=== PATIENT | female | born 1940 | race Caucasian/White ===

== ENCOUNTER 2017-11-09 22:36 | Inpatient (IN) | payer MEDICARE ==
[2017-11-09 23:12] LABS: #Basophils 0.1 thou/uL (0.0-0.2); #Eosinphils 0.2 thou/uL (0.0-0.7); #Lymphocytes 1.6 thou/uL (1.20-3.40); #Monocytes 0.9 thou/uL (0.11-0.59); #Neutrophils 5.6 thou/uL (1.40-6.50); %Basophils 1.6 % (0.0-1.0); %Eosinophils 2.4 % (0.0-10.0); %Lymphocytes 19.1 % (21.0-51.0); %Monocytes 10.1 % (0.0-10.0); %Neutrophils 66.8 % (42.0-75.0); Mean Corpuscular Hemoglobin 29.5 pg (27.0-31.0); Mean Corpuscular Volume 89.6 fl (81.0-99.0); Mean Platelet Volume 9.4 fL (7.4-10.4); Platelet Count 214 thou/uL (130-400); RBC Distribution Width 13.5 % (11.5-14.5); Red Blood Cell (RBC) Count 4.75 mill/uL (4.20-5.40); White Blood Cell (WBC) Count 8.4 thou/uL (4.8-10.8)
--- NOTE | 2017-11-09 23:12 | RAD ---
PORTABLE CHEST: 11/09/17 HISTORY: Shortness of breath. Heart size is within normal limits. There are atherosclerotic changes of the aorta. Chronic lung nair ges are seen without focal infiltrates. IMPRESSION: No active intrathoracic disease. POS: [facility]
[2017-11-09] MEDS ORDERED: methylPREDNISolone Sod Succ/PF 125 MG/2 ML VIAL ONE (23:13)
[2017-11-09 23:34] LABS: Anion Gap 14 mmol/L (10-20); BUN (Urea Nitrogen) 12 mg/dL (9.8-20.1); Carbon Dioxide 21 mmol/L (23-31); Chloride 107 mmol/L (98-107); Potassium 3.8 mmol/L (3.5-5.1); Sodium 138 mmol/L (136-145)
[2017-11-09 23:35] LABS: ALT (SGPT) 12 U/L (8-55); AST (SGOT) 20 U/L (5-34); Albumin 4.2 g/dL (3.4-4.8); Alkaline Phosphatase 101 U/L (40-150); Bilirubin, Total 0.4 mg/dL (0.2-1.2); CK (CPK) 78 U/L (29-168); Calc. Creatinine Clearance 0 mL/min (70-130); Calcium 9.2 mg/dL (7.8-10.44); Estimated GFR-MDRD 71; Glucose 113 mg/dL (83-110); Lipase 17 U/L (8-78); Magnesium 2.1 mg/dL (1.6-2.6); Protein, Total 7.2 g/dL (6.0-8.3)
[2017-11-09 23:38] LABS: Troponin I Less than 0.010 ng/mL (< 0.028)
[2017-11-09 23:53] LABS: Bilirubin Negative (Negative); Blood, Urine Negative (Negative); Clarity CLEAR (Clear); Glucose, Urine (Dipstick) Negative (Negative); Leukocyte Negative (Negative); Nitrite Negative (Negative); Protein, Urine (Dipstick) Negative (Neg-Trace); Specific Gravity, Urine 1.009 (1.002-1.036); Urobilinogen 0.2 mg/dL (0.2-1.0); pH, Urine 5.5 (5.0-9.0)
[2017-11-10] MEDS ORDERED: hydrALAZINE 20 MG/ML VIAL SLOW IVP PRN (01:06)
[2017-11-10] MEDS ORDERED: Ondansetron ODT 4 MG TAB PO PRN (01:06)
[2017-11-10] MEDS ORDERED: Diabetic Tussin 200 MG/10 ML UDCUP PO PRN (01:06)
[2017-11-10] MEDS ORDERED: Mag-Al 1200 mg/1200 mg/30 ML UDCUP PO PRN (01:06)
[2017-11-10] MEDS ORDERED: Ondansetron HCl/PF 4 MG/2 ML Vial IVP PRN (01:06)
[2017-11-10] MEDS ORDERED: Milk Of Magnesia 30 ML UDCUP PO PRN (01:06)
[2017-11-10] MEDS ORDERED: Loperamide HCl 2 MG CAP PO PRN (01:06)
[2017-11-10] MEDS ORDERED: HYDROcodone/Acetaminophen 5/325 mg Tablet PO PRN (01:06)
[2017-11-10] MEDS ORDERED: Acetaminophen 325 MG TAB PO PRN (01:06)
[2017-11-10] MEDS ORDERED: Senokot 8.6 MG TAB PO PRN (01:06)
[2017-11-10 01:14] VITALS: BMI 29.3
--- NOTE | 2017-11-10 02:36 | HP ---
PRIMARY CARE PHYSICIAN: [facility] call admission. REASON FOR ADMISSION: Acute hypoxic respiratory failure, COPD exacerbation, new onset congestive hea rt failure. HISTORY OF PRESENT ILLNESS: A 77-year-old female who has ongoing tobacco abuse disorder. She has a history of severe COPD. She was recently hospitalized about a month ago at [facility]. At that time, she required hospitalization at that time she was treated with BiPAP. She was dischar ged home and she started smoking again. For the last few days, she was having very poor appetite. S he was having increasing shortness of breath. Patient also had increasing bilateral lower extremity pitting edema for about a week. Patient stopped taking Lasix, which she was taking at home. Patient was having cough productive of yellowish sputum. She denies any flu-like symptoms. She had runny n ose, upper respiratory symptoms. Patient's home medication and nebulizer medication was not working and that is why family member brought her to the emergency room. Patient does not use oxygen at home . When she arrived to the emergency room, she was hypoxic and she was requiring BiPAP for her respir atory distress. ALLERGIES: No known drug allergies. CURRENT HOME MEDICATIONS: Patient did not bring her home medications and she is not able to tell me all the medication name, so unable to review at this point, but she reports that she has nebulizer an d she is using nebulizer medicine. She is also taking Lasix, dose is unknown. REVIEW OF SYSTEMS: The following complete review of systems was negative, unless otherwise mentioned in the HPI or below: Constitutional: Weight loss or gain, ability to conduct usual activities. Sk in: Rash, itching. Eyes: Double vision, pain. ENT/Mouth: Nose bleeding, neck stiffness, pain, te nderness. Cardiovascular: Palpitations, dyspnea on exertion, orthopnea. Respiratory: Shortness of breath, wheezing, cough, hemoptysis, fever or night sweats. Gastrointestinal: Poor appetite, abdom inal pain, heartburn, nausea, vomiting, constipation, or diarrhea. Genitourinary: Urgency, frequenc y, dysuria, nocturia. Musculoskeletal: Pain, swelling. Neurologic/Psychiatric: Anxiety, depressio n. Allergy/Immunologic: Skin rash, bleeding tendency. Please see my HPI for pertinent positives an d negatives. All other review of system reviewed and negative except as mentioned in the HPI. PAST MEDICAL HISTORY: COPD, CHF, tobacco abuse disorder. PAST SURGICAL HISTORY: Hysterectomy, cholecystectomy, tubal ligation, appendicectomy. PAST PSYCHIATRIC HISTORY: Anxiety and depression. SOCIAL HISTORY: Patient is smoking about 1 pack per day for the last 60 years. She is trying to cut down smoking. She denies any alcohol abuse. She denies any other illicit drug abuse. She lives by herself. FAMILY HISTORY: No strong family history of premature coronary artery disease, stroke, or cancer. EMERGENCY ROOM COURSE: Patient is given BiPAP, Levaquin 750 mg, Solu-Medrol 125 mg, and DuoNeb thera py. PHYSICAL EXAMINATION: VITAL SIGNS: Currently, blood pressure 183/82, pulse 104, respiratory rate 26, temperature 98.1, sat uration 98% on 2 liter oxygen, subsequently 93% on BiPAP. Weight 62.6 kilograms. GENERAL: Patient is currently hypertensive, tachypneic, in respiratory distress on BiPAP. HEENT: Head: Normocephalic, atraumatic. Eyes: Pupils round, reactive to light. Extraocular muscl e intact. ENT: Oropharynx within normal limits. Moist mucous membranes, no oral lesions, no pharyngeal erythe ma, or exudate. NECK: Supple, no JVD, no thyromegaly, no carotid bruits. LUNGS: Bibasilar rales noted. Bilateral end expiratory wheezing heard. Air entry reduced. CARDIAC: S1, S2 regular, tachycardia, no murmur, no gallop, no rub. ABDOMEN: Soft, bowel sounds present, nontender, nondistended. No organomegaly, no mass, no suprapub ic tenderness. BACK: Unremarkable, no CVA tenderness. EXTREMITIES: Upper extremity passive movement of all joints are normal. Lower extremity bilateral + 2 pitting edema noted. Good distal pulsation. SKIN: No skin rash. HEMATOLOGICAL SYSTEM: No lymphadenopathy. PSYCHIATRIC: Normal affect. NEUROLOGIC: Nonfocal examination. SIGNIFICANT LABS: EKG showing sinus tachycardia. Left atrial enlargement. Chest x-ray based on my review, COPD changes without any acute process. CBC: WBC 8.4, hemoglobin 14.0, platelet 214. BMP: Sodium 138, potassium 3.8, chloride 107, carbon dioxide 21, anion gap 14, BUN 12, creatinine 0.78, g lucose 113, calcium 9.2, lactic acid 1.0. LFT: AST 20, ALT 12, alkaline phosphatase was 101, albumin 4.2, lipase 17. Cardiac enzymes negative . BNP 308.1. CK 78. Urinalysis normal. ASSESSMENT AND PLAN/IMPRESSION: 1. Acute hypoxic respiratory failure likely due to chronic obstructive pulmonary disease exacerbatio n. 2. Chronic obstructive pulmonary disease exacerbation. 3. Ongoing tobacco abuse disorder. 4. Bilateral lower extremity edema likely due to congestive heart failure, predominantly right-sided heart failure secondary to cor pulmonale. 5. Mild protein-calorie malnutrition. 6. Hypertension. PLAN: 1. Admission to [facility] [place]. BiPAP. Pulmonary consultation. Echocardiography. Lasix 20 mg IV b.i.d., Du oNebs q.4 hourly and p.r.n., Pulmicort nebulization twice daily, cefepime 1 gram IV q.12 hourly, doxy cycline 100 mg twice daily, Mucinex 600 mg 3 times daily, Solu-Medrol 40 mg IV q.6 hourly, Protonix 4 0 mg p.o. daily. Smoking cessation counseling given. Nutritional support with Ensure. 2. DVT prophylaxis with Lovenox 40 mg subcu daily. 3. Gastrointestinal prophylaxis with Protonix 40 mg IV daily. 4. Code status: The patient is FULL CODE. Patient does not have a surrogate decision maker. Disposition plan based on clinical course. We are expecting patient's stay in the hospital more than 2 midnights. Plan of care discussed with the patient in detail.
[2017-11-10 05:15] LABS: Anion Gap 11 mmol/L (10-20); BUN (Urea Nitrogen) 10 mg/dL (9.8-20.1); Calc. Creatinine Clearance 64 mL/min (70-130); Calcium 8.7 mg/dL (7.8-10.44); Carbon Dioxide 21 mmol/L (23-31); Chloride 109 mmol/L (98-107); Estimated GFR-MDRD 82; Glucose 131 mg/dL (83-110); Potassium 3.9 mmol/L (3.5-5.1); Sodium 137 mmol/L (136-145)
[2017-11-10 05:16] LABS: #Lymphocytes 0.4 thou/uL (1.20-3.40); #Monocytes 0.1 thou/uL (0.11-0.59); #Neutrophils 6.5 thou/uL (1.40-6.50); %Basophils 0.2 % (0.0-1.0); %Eosinophils 0.3 % (0.0-10.0); %Lymphocytes 5.7 % (21.0-51.0); %Monocytes 1.7 % (0.0-10.0); %Neutrophils 92.1 % (42.0-75.0); Hemoglobin 12.9 g/dL (12.0-16.0); Mean Corpuscular HGB CONC 33.4 g/dL (32.0-36.0); Mean Corpuscular Volume 89.9 fl (81.0-99.0); Mean Platelet Volume 9.5 fL (7.4-10.4); Platelet Count 179 thou/uL (130-400); RBC Distribution Width 13.4 % (11.5-14.5); Red Blood Cell (RBC) Count 4.31 mill/uL (4.20-5.40); White Blood Cell (WBC) Count 7.1 thou/uL (4.8-10.8)
[2017-11-10] MEDS: Furosemide 20 MG/2 ML VIAL SLOW IVP SCH ×2 (05:48→15:27)
[2017-11-10] MEDS: Budesonide 0.5 MG/2 ML NEB INH SCH ×2 (07:51→18:42)
[2017-11-10] MEDS: Doxycycline 100 MG CAP PO SCH ×2 (08:23→20:17)
[2017-11-10] MEDS: Enoxaparin Sodium 40 MG/0.4 ML SYRINGE SC SCH (08:24)
[2017-11-10] MEDS: guaiFENesin ER 600 MG TAB PO SCH ×2 (08:24→20:18)
[2017-11-10] MEDS: Cefepime 2 GM in Syringe 12.5 ML SLOW IVP SCH ×2 (08:30→20:17)
--- NOTE | 2017-11-10 11:58 | PDOC.PN ---
- Subjective Encounter Start Date: 11/10/17 Encounter Start Time: 11:15 Subjective: off bipap, breathing better -: no chest pain or palp - Objective Resuscitation Status: Resuscitation Status FULL:Full Resuscitation MAR Reviewed: Yes Vital Signs & Weight: Vital Signs (12 hours) Temp Pulse Resp BP Pulse Ox 11/10/17 11:20 98.8 F 88 24 H 110/55 L 99 11/10/17 08:00 98.1 F 81 22 H 113/60 100 11/10/17 07:52 97 100 11/10/17 07:51 95 20 100 11/10/17 07:50 95 20 100 11/10/17 04:00 98.3 F 84 24 H 102/54 L 100 11/10/17 02:49 84 21 H 100 11/10/17 01:06 82 11/10/17 01:00 98.3 F 84 24 H 97 11/10/17 00:55 98.1 F 86 26 H 131/78 97 Weight Weight 135 lb 9.6 oz I&O: 11/09/17 11/10/17 11/11/17 06:59 06:59 06:59 Intake Total 340 Output Total 600 Balance -260 Result Diagrams: 11/10/17 04:33 11/10/17 04:33 Phys Exam - Physical Examination HEENT: PERRLA, sclera anicteric Neck: no JVD, supple Respiratory: no wheezing, no rales rhonchi+ Cardiovascular: RRR, no significant murmur Gastrointestinal: soft, non-tender, positive bowel sounds Musculoskeletal: pulses present, edema present Neurological: non-focal, moves all 4 limbs Dx/Plan (1) Acute respiratory failure with hypoxia Code(s): J96.01 - ACUTE RESPIRATORY FAILURE WITH HYPOXIA Status: Acute Comment: resolving (2) COPD exacerbation Code(s): J44.1 - CHRONIC OBSTRUCTIVE PULMONARY DISEASE W (ACUTE) EXACERBATION Status: Acute (3) CHF exacerbation Code(s): I50.9 - HEART FAILURE, UNSPECIFIED Status: Acute Qualifiers: Congestive heart failure type: diastolic Qualified Code(s): I50.33 - Acute on chronic diastolic (congestive) heart failure (4) Tobacco abuse Code(s): Z72.0 - TOBACCO USE Status: Chronic (5) Protein-calorie malnutrition, moderate Code(s): E44.0 - MODERATE PROTEIN-CALORIE MALNUTRITION Status: Chronic - Plan on cefepime and doxy, nebs, solumedrol iv -: lasix 20q12h, watch for hypotension -: january tx to telemetry -: await echo results -: pt will think and d/w her children about code status * . Review of Systems - Medications/Allergies Allergies/Adverse Reactions: Allergies Allergy/AdvReac Type Severity Reaction Status Date / Time No Known Allergies Allergy Verified 11/10/17 01:30 Medications: Current Medications Acetaminophen (Tylenol) 650 mg PO Q4H PRN PRN Reason: Headache/Fever or Pain Hydrocodone Bitart/Acetaminophen ([place] 5/325) 1 tab PO Q4H PRN PRN Reason: Moderate Pain (4-6) Al Hydroxide/Mg Hydroxide (Maalox) 30 ml PO Q6H PRN PRN Reason: Heartburn or Indigestion Albuterol/Ipratropium (Duoneb) 3 ml NEB [id number] [facility] Last Admin: 11/10/17 07:50 Dose: 3 ml Albuterol/Ipratropium (Duoneb) 3 ml NEB Q2H PRN PRN Reason: SOB &/or Wheezing Budesonide (Pulmicort Neb Solution) 0.5 mg INH BID-RT [facility] Last Admin: 11/10/17 07:51 Dose: 0.5 mg Doxycycline Hyclate (Vibramycin) 100 mg PO BID [facility] Last Admin: 11/10/17 08:23 Dose: 100 mg Enoxaparin Sodium (Lovenox) 40 mg SC 0900 [facility] Last Admin: 11/10/17 08:24 Dose: 40 mg Furosemide (Lasix) 20 mg SLOW IVP 0600,1400 [facility] Last Admin: 11/10/17 05:48 Dose: 20 mg Guaifenesin (Robitussin Sf) 200 mg PO Q4H PRN PRN Reason: Cough Guaifenesin (Mucinex) 600 mg PO Q12HR [facility] Last Admin: 11/10/17 08:24 Dose: 600 mg Hydralazine HCl (Apresoline) 10 mg SLOW IVP Q4H PRN PRN Reason: Systolic BP > 180 Cefepime HCl 2 gm/ Syringe 12.5 mls @ 150 mls/hr SLOW IVP Q12HR [facility] Last Admin: 11/10/17 08:30 Dose: 12.5 mls Loperamide HCl (Imodium) 2 mg PO PRN PRN PRN Reason: Diarrhea/Loose Stools Magnesium Hydroxide (Milk Of Magnesium) 30 ml PO DAILYPRN PRN PRN Reason: Constipation Methylprednisolone Sodium Succinate (Solu-Medrol) 40 mg IVP Q6HR [facility] Last Admin: 11/10/17 11:52 Dose: 40 mg Mometasone Furoate/Formoterol Fumar (Dulera 200 Mcg/5 Mcg Inhaler) 2 puff INH BID-RT [facility] Ondansetron HCl (Zofran Odt) 4 mg PO Q6H PRN PRN Reason: Nausea/Vomiting Ondansetron HCl (Zofran) 4 mg IVP Q6H PRN PRN Reason: Nausea/Vomiting Pantoprazole Sodium (Protonix) 40 mg PO DAILY [facility] Last Admin: 11/10/17 08:23 Dose: 40 mg Senna (Senokot) 2 tab PO HSPRN PRN PRN Reason: Constipation Sodium Chloride (Flush - Normal Saline) 10 ml IVF Q12HR [facility] Last Admin: 11/10/17 08:30 Dose: 10 ml Sodium Chloride (Flush - Normal Saline) 10 ml IVF PRN PRN PRN Reason: Saline Flush
--- NOTE | 2017-11-10 18:11 | CON ---
DATE OF CONSULTATION: 11/10/2017 HISTORY OF PRESENT ILLNESS: Iris Crowley is a 77-year-old female from [place] who sees no [facility] physician, a pack-a-day smoker for 60 years. Previous history of bronchitis. Six months ago, she said she could walk maybe a block, now she can barely walk even 20 feet without getting markedly roe rt of breath. Presented last night with increased shortness breath, cough, wheezing, orthopnea, and PND, but no chest pain, chills, or sweats. Admitted with COPD exacerbation. PAST MEDICAL HISTORY: Surprisingly unremarkable for any other major medical problems, history of lora betes, hypertension. PAST SURGICAL HISTORY: Previous surgeries have included a hysterectomy, tubal ligation. SOCIAL HISTORY: Otherwise, was a nurse's aide. CHRONIC MEDICATIONS: Apparently none to speak of. FAMILY HISTORY: Unremarkable. She has been living with her son. REVIEW OF SYSTEMS: Ten-point negative. PHYSICAL EXAMINATION: VITAL SIGNS: Sats are 95 off BiPAP, respirations 22, temperature 98, blood pressure 113/60. Chest d iffuse wheezing, prolonged expiration. CARDIAC: Sinus tachycardia. ABDOMEN: Soft. IMAGING: X-ray shows no acute infiltrates. LABORATORY DATA: White count 7000, H and H 12 and 38, platelet count 179. Electrolytes are normal. BNP is 308. IMPRESSION: 1. Acute exacerbation of bronchitis. 2. Tobacco abuse. 3. Elevated BNP. Agree with present treatment, O2, nebulizers, steroids. I reviewed all the x-rays. I have ordered a PFT in the next few days. Symbicort. She is to refrain from smoking. Consultation note 70 minutes with 50% in direct patient care at the bedside.
[2017-11-10] MEDS: Mometasone/Formoterol 120 PUFF INHALER INH SCH (18:44)
[2017-11-11] MEDS: Furosemide 20 MG/2 ML VIAL SLOW IVP SCH (05:27)
[2017-11-11] MEDS ORDERED: predniSONE 20 MG TAB PO SCH (08:15)
[2017-11-11] MEDS: Mometasone/Formoterol 120 PUFF INHALER INH SCH ×2 (08:36→18:41)
[2017-11-11] MEDS: Budesonide 0.5 MG/2 ML NEB INH SCH ×2 (08:38→18:40)
[2017-11-11] MEDS: guaiFENesin ER 600 MG TAB PO SCH ×2 (08:51→20:35)
[2017-11-11] MEDS: Doxycycline 100 MG CAP PO SCH ×2 (08:51→20:50)
[2017-11-11] MEDS: Cefepime 2 GM in Syringe 12.5 ML SLOW IVP SCH ×2 (08:52→20:35)
[2017-11-11] MEDS: Enoxaparin Sodium 40 MG/0.4 ML SYRINGE SC SCH (08:52)
--- NOTE | 2017-11-11 08:56 | PRG ---
DATE OF SERVICE: 11/11/2017 This morning she is awake, alert, responsive. She is less short of breath. PHYSICAL EXAMINATION: VITAL SIGNS: Sats 90 on 2 liters, temperature 98, blood pressure 95/52. CHEST: Chest revealed decreased breath sounds, no wheezing. CARDIAC: Normal S1-S2. ABDOMEN: Soft. No masses. IMPRESSION: Severe chronic obstructive pulmonary disease. PLAN: She can be transferred out of the [facility]. Deescalate antibiotics. I will follow.
--- NOTE | 2017-11-11 13:44 | PDOC.PN ---
- Subjective Encounter Start Date: 11/11/17 Encounter Start Time: 12:20 Subjective: awake, no sob -: is on nasal canula, did not use bipap last night -: wants to be DNR - Objective Resuscitation Status: Resuscitation Status FULL:Full Resuscitation MAR Reviewed: Yes Vital Signs & Weight: Vital Signs (12 hours) Temp Pulse Resp BP Pulse Ox 11/11/17 12:26 91 18 99 11/11/17 11:00 98.3 F 99 18 97/52 L 99 11/11/17 08:37 99 11/11/17 08:33 93 18 99 11/11/17 08:00 88 101/52 L 11/11/17 07:53 98.3 F 86 20 100 11/11/17 07:29 98.3 F 86 20 91/52 L 100 11/11/17 04:00 98.1 F 84 20 99/57 L 100 11/11/17 02:16 88 12 100 Weight Weight 131 lb 4.8 oz I&O: 11/10/17 11/11/17 11/12/17 06:59 06:59 06:59 Intake Total 340 1130 480 Output Total 600 3500 1200 Balance -260 -2370 -720 Result Diagrams: 11/10/17 04:33 11/10/17 04:33 Phys Exam - Physical Examination HEENT: PERRLA, moist MMs Neck: no JVD, supple Respiratory: no wheezing, no rales rhonchi+ Cardiovascular: RRR, no significant murmur Gastrointestinal: soft, non-tender, positive bowel sounds Musculoskeletal: no edema, pulses present Neurological: non-focal, moves all 4 limbs Psychiatric: A&O x 3 Dx/Plan (1) Acute respiratory failure with hypoxia Code(s): J96.01 - ACUTE RESPIRATORY FAILURE WITH HYPOXIA Status: Acute Comment: resolving (2) COPD exacerbation Code(s): J44.1 - CHRONIC OBSTRUCTIVE PULMONARY DISEASE W (ACUTE) EXACERBATION Status: Acute (3) CHF exacerbation Code(s): I50.9 - HEART FAILURE, UNSPECIFIED Status: Acute Qualifiers: Congestive heart failure type: diastolic Qualified Code(s): I50.33 - Acute on chronic diastolic (congestive) heart failure (4) Tobacco abuse Code(s): Z72.0 - TOBACCO USE Status: Chronic (5) Protein-calorie malnutrition, moderate Code(s): E44.0 - MODERATE PROTEIN-CALORIE MALNUTRITION Status: Chronic - Plan is on cefepime and doxy -: nebs, oral prednisone -: oral lasix -: has diastolic dysfunction with ef of 60% -: watch for sbp (currently around 90's) * . Review of Systems - Medications/Allergies Allergies/Adverse Reactions: Allergies Allergy/AdvReac Type Severity Reaction Status Date / Time No Known Allergies Allergy Verified 11/10/17 01:30 Medications: Current Medications Acetaminophen (Tylenol) 650 mg PO Q4H PRN PRN Reason: Headache/Fever or Pain Hydrocodone Bitart/Acetaminophen ([place] 5/325) 1 tab PO Q4H PRN PRN Reason: Moderate Pain (4-6) Al Hydroxide/Mg Hydroxide (Maalox) 30 ml PO Q6H PRN PRN Reason: Heartburn or Indigestion Albuterol/Ipratropium (Duoneb) 3 ml NEB [id number] [facility] Last Admin: 11/11/17 12:26 Dose: 3 ml Albuterol/Ipratropium (Duoneb) 3 ml NEB Q2H PRN PRN Reason: SOB &/or Wheezing Budesonide (Pulmicort Neb Solution) 0.5 mg INH BID-RT [facility] Last Admin: 11/11/17 08:38 Dose: 0.5 mg Doxycycline Hyclate (Vibramycin) 100 mg PO BID [facility] Last Admin: 11/11/17 08:51 Dose: 100 mg Enoxaparin Sodium (Lovenox) 40 mg SC 0900 [facility] Last Admin: 11/11/17 08:52 Dose: 40 mg Furosemide (Lasix) 40 mg PO DAILY-[facility] Guaifenesin (Robitussin Sf) 200 mg PO Q4H PRN PRN Reason: Cough Guaifenesin (Mucinex) 600 mg PO Q12HR [facility] Last Admin: 11/11/17 08:51 Dose: 600 mg Hydralazine HCl (Apresoline) 10 mg SLOW IVP Q4H PRN PRN Reason: Systolic BP > 180 Cefepime HCl 2 gm/ Syringe 12.5 mls @ 150 mls/hr SLOW IVP Q12HR [facility] Last Admin: 11/11/17 08:52 Dose: 12.5 mls Loperamide HCl (Imodium) 2 mg PO PRN PRN PRN Reason: Diarrhea/Loose Stools Magnesium Hydroxide (Milk Of Magnesium) 30 ml PO DAILYPRN PRN PRN Reason: Constipation Mometasone Furoate/Formoterol Fumar (Dulera 200 Mcg/5 Mcg Inhaler) 2 puff INH BID-RT [facility] Last Admin: 11/11/17 08:36 Dose: 2 puff Ondansetron HCl (Zofran Odt) 4 mg PO Q6H PRN PRN Reason: Nausea/Vomiting Ondansetron HCl (Zofran) 4 mg IVP Q6H PRN PRN Reason: Nausea/Vomiting Pantoprazole Sodium (Protonix) 40 mg PO DAILY [facility] Last Admin: 11/11/17 08:52 Dose: 40 mg Prednisone (Prednisone) 40 mg PO QAM[facility] Senna (Senokot) 2 tab PO HSPRN PRN PRN Reason: Constipation Sodium Chloride (Flush - Normal Saline) 10 ml IVF Q12HR [facility] Last Admin: 11/11/17 08:52 Dose: 10 ml Sodium Chloride (Flush - Normal Saline) 10 ml IVF PRN PRN PRN Reason: Saline Flush
[2017-11-12] MEDS: Enoxaparin Sodium 40 MG/0.4 ML SYRINGE SC SCH (07:46)
[2017-11-12] MEDS: predniSONE 20 MG TAB PO SCH (07:47)
[2017-11-12] MEDS: guaiFENesin ER 600 MG TAB PO SCH ×2 (07:47→20:23)
[2017-11-12] MEDS: Furosemide 40 MG TAB PO SCH (07:47)
[2017-11-12] MEDS: Doxycycline 100 MG CAP PO SCH ×2 (07:47→20:23)
[2017-11-12] MEDS: Budesonide 0.5 MG/2 ML NEB INH SCH ×2 (08:16→20:29)
[2017-11-12] MEDS: Mometasone/Formoterol 120 PUFF INHALER INH SCH ×2 (08:17→20:28)
--- NOTE | 2017-11-12 09:20 | PRG ---
DATE OF SERVICE: 11/12/2017 SUBJECTIVE: She is doing better, still very short of breath. She is scheduled for a PFT to get a ba lelia status. She is apparently a DNR. OBJECTIVE: VITAL SIGNS: Sats are 95 on 2 liters, pulse 105, temperature is 98, blood pressure is 113/66. CHEST: Chest reveals decreased breath sounds without any wheezing. CARDIAC: Normal S1, S2. No gallops. ABDOMEN: Soft, no masses. IMPRESSION: Severe chronic obstructive pulmonary disease. The patient is DNR. PLAN: All cultures are negative. We will stop the Maxipime. Continue doxycycline, steroids, nebuli zer treatments. Hopefully, home in the next few days.
--- NOTE | 2017-11-12 11:46 | PDOC.PN ---
- Subjective Encounter Start Date: 11/12/17 Encounter Start Time: 10:30 Subjective: still has sob off and on -: is amb in room -: sitting in chair - Objective Resuscitation Status: Resuscitation Status DNR:Do Not Resuscitate MAR Reviewed: Yes Vital Signs & Weight: Vital Signs (12 hours) Temp Pulse Resp BP BP Pulse Ox 11/12/17 08:00 98.2 F 105 H 16 11/12/17 07:44 98.2 F 105 H 16 139/66 95 11/12/17 04:00 98.6 F 96 20 133/93 H 98 11/12/17 03:10 95 11/12/17 02:25 16 11/12/17 00:00 98.6 F 93 18 105/59 L 96 Weight Weight 131 lb 4.8 oz I&O: 11/11/17 11/12/17 11/13/17 06:59 06:59 06:59 Intake Total 1130 1680 240 Output Total 3500 1200 Balance -2370 480 240 Result Diagrams: 11/10/17 04:33 11/10/17 04:33 Phys Exam - Physical Examination HEENT: PERRLA, moist MMs Neck: no JVD, supple Respiratory: no wheezing, no rales rhonchi++ Cardiovascular: RRR, no significant murmur Gastrointestinal: soft, non-tender, positive bowel sounds Musculoskeletal: no edema, pulses present Neurological: non-focal, moves all 4 limbs Psychiatric: A&O x 3 Dx/Plan (1) Acute respiratory failure with hypoxia Code(s): J96.01 - ACUTE RESPIRATORY FAILURE WITH HYPOXIA Status: Acute Comment: resolving (2) COPD exacerbation Code(s): J44.1 - CHRONIC OBSTRUCTIVE PULMONARY DISEASE W (ACUTE) EXACERBATION Status: Acute (3) CHF exacerbation Code(s): I50.9 - HEART FAILURE, UNSPECIFIED Status: Acute Qualifiers: Congestive heart failure type: diastolic Qualified Code(s): I50.33 - Acute on chronic diastolic (congestive) heart failure (4) Tobacco abuse Code(s): Z72.0 - TOBACCO USE Status: Chronic (5) Protein-calorie malnutrition, moderate Code(s): E44.0 - MODERATE PROTEIN-CALORIE MALNUTRITION Status: Chronic - Plan is on doxy, nebs and oral prednisone -: PT to amb pt as tolerated -: hemostable -: oral lasix, sbp holding up well (130's) now * . Review of Systems - Medications/Allergies Allergies/Adverse Reactions: Allergies Allergy/AdvReac Type Severity Reaction Status Date / Time No Known Allergies Allergy Verified 11/10/17 01:30 Medications: Current Medications Acetaminophen (Tylenol) 650 mg PO Q4H PRN PRN Reason: Headache/Fever or Pain Hydrocodone Bitart/Acetaminophen ([place] 5/325) 1 tab PO Q4H PRN PRN Reason: Moderate Pain (4-6) Al Hydroxide/Mg Hydroxide (Maalox) 30 ml PO Q6H PRN PRN Reason: Heartburn or Indigestion Albuterol/Ipratropium (Duoneb) 3 ml NEB [id number] [facility] Last Admin: 11/12/17 10:46 Dose: Not Given Albuterol/Ipratropium (Duoneb) 3 ml NEB Q2H PRN PRN Reason: SOB &/or Wheezing Budesonide (Pulmicort Neb Solution) 0.5 mg INH BID-RT [facility] Last Admin: 11/12/17 08:16 Dose: 0.5 mg Doxycycline Hyclate (Vibramycin) 100 mg PO BID [facility] Last Admin: 11/12/17 07:47 Dose: 100 mg Enoxaparin Sodium (Lovenox) 40 mg SC 0900 [facility] Last Admin: 11/12/17 07:46 Dose: 40 mg Furosemide (Lasix) 40 mg PO DAILY-AC [facility] Last Admin: 11/12/17 07:47 Dose: 40 mg Guaifenesin (Robitussin Sf) 200 mg PO Q4H PRN PRN Reason: Cough Guaifenesin (Mucinex) 600 mg PO Q12HR [facility] Last Admin: 11/12/17 07:47 Dose: 600 mg Hydralazine HCl (Apresoline) 10 mg SLOW IVP Q4H PRN PRN Reason: Systolic BP > 180 Loperamide HCl (Imodium) 2 mg PO PRN PRN PRN Reason: Diarrhea/Loose Stools Magnesium Hydroxide (Milk Of Magnesium) 30 ml PO DAILYPRN PRN PRN Reason: Constipation Mometasone Furoate/Formoterol Fumar (Dulera 200 Mcg/5 Mcg Inhaler) 2 puff INH BID-RT [facility] Last Admin: 11/12/17 08:17 Dose: 2 puff Ondansetron HCl (Zofran Odt) 4 mg PO Q6H PRN PRN Reason: Nausea/Vomiting Ondansetron HCl (Zofran) 4 mg IVP Q6H PRN PRN Reason: Nausea/Vomiting Pantoprazole Sodium (Protonix) 40 mg PO DAILY [facility] Last Admin: 11/12/17 07:47 Dose: 40 mg Prednisone (Prednisone) 40 mg PO QAM-WM [facility] Last Admin: 11/12/17 07:47 Dose: 40 mg Senna (Senokot) 2 tab PO HSPRN PRN PRN Reason: Constipation Sodium Chloride (Flush - Normal Saline) 10 ml IVF Q12HR [facility] Last Admin: 11/12/17 07:48 Dose: 10 ml Sodium Chloride (Flush - Normal Saline) 10 ml IVF PRN PRN PRN Reason: Saline Flush
[2017-11-13] MEDS: Mometasone/Formoterol 120 PUFF INHALER INH SCH (07:17)
[2017-11-13] MEDS: Budesonide 0.5 MG/2 ML NEB INH SCH (07:19)
[2017-11-13] MEDS: Enoxaparin Sodium 40 MG/0.4 ML SYRINGE SC SCH (07:46)
[2017-11-13] MEDS: Furosemide 40 MG TAB PO SCH (07:46)
[2017-11-13] MEDS: predniSONE 20 MG TAB PO SCH (07:46)
[2017-11-13] MEDS: Doxycycline 100 MG CAP PO SCH (07:46)
[2017-11-13] MEDS: guaiFENesin ER 600 MG TAB PO SCH (07:47)
[2017-11-13 08:22] VITALS: BP 108/68; TEMP 96.8
--- NOTE | 2017-11-13 10:31 | PDOC.PN ---
- Subjective Encounter Start Date: 11/13/17 Encounter Start Time: 08:15 Subjective: breathing better, eating well -: not amb much - Objective Resuscitation Status: Resuscitation Status DNR:Do Not Resuscitate MAR Reviewed: Yes Vital Signs & Weight: Vital Signs (12 hours) Temp Pulse Resp BP Pulse Ox 11/13/17 10:09 85 20 92 L 11/13/17 08:00 96.8 F L 85 18 108/68 95 11/13/17 07:20 88 L 11/13/17 07:18 78 20 88 L 11/13/17 03:25 95 11/13/17 02:07 75 18 95 Weight Weight 131 lb 4.8 oz I&O: 11/12/17 11/13/17 11/14/17 06:59 06:59 06:59 Intake Total 1680 1200 240 Output Total 1200 Balance 480 1200 240 Result Diagrams: 11/10/17 04:33 11/10/17 04:33 Phys Exam - Physical Examination HEENT: PERRLA, moist MMs Neck: no JVD, supple Respiratory: no wheezing, no rales rhonchi+ Cardiovascular: RRR, no significant murmur Gastrointestinal: soft, non-tender, positive bowel sounds Musculoskeletal: no edema, pulses present Neurological: non-focal, moves all 4 limbs Psychiatric: A&O x 3 Dx/Plan (1) Acute respiratory failure with hypoxia Code(s): J96.01 - ACUTE RESPIRATORY FAILURE WITH HYPOXIA Status: Resolved (2) COPD exacerbation Code(s): J44.1 - CHRONIC OBSTRUCTIVE PULMONARY DISEASE W (ACUTE) EXACERBATION Status: Acute (3) CHF exacerbation Code(s): I50.9 - HEART FAILURE, UNSPECIFIED Status: Acute Qualifiers: Qualified Code(s): I50.33 - Acute on chronic diastolic (congestive) heart failure Comment: resolving (4) Tobacco abuse Code(s): Z72.0 - TOBACCO USE Status: Chronic (5) Protein-calorie malnutrition, moderate Code(s): E44.0 - MODERATE PROTEIN-CALORIE MALNUTRITION Status: Chronic - Plan will likely need home oxygen -: is on doxy, prednisone, nebs -: oral lasix, check amb spo2 on room air/oxygen -: PT to mobilize pt as tolerated with oxygen -: taper and dc oxygen for spo2 of 90% * . Review of Systems - Medications/Allergies Allergies/Adverse Reactions: Allergies Allergy/AdvReac Type Severity Reaction Status Date / Time No Known Allergies Allergy Verified 11/10/17 01:30 Medications: Current Medications Acetaminophen (Tylenol) 650 mg PO Q4H PRN PRN Reason: Headache/Fever or Pain Hydrocodone Bitart/Acetaminophen (Colony 5/325) 1 tab PO Q4H PRN PRN Reason: Moderate Pain (4-6) Al Hydroxide/Mg Hydroxide (Maalox) 30 ml PO Q6H PRN PRN Reason: Heartburn or Indigestion Albuterol/Ipratropium (Duoneb) 3 ml NEB [id number] [facility] Last Admin: 11/13/17 10:09 Dose: 3 ml Albuterol/Ipratropium (Duoneb) 3 ml NEB Q2H PRN PRN Reason: SOB &/or Wheezing Budesonide (Pulmicort Neb Solution) 0.5 mg INH BID-RT [facility] Last Admin: 11/13/17 07:19 Dose: 0.5 mg Doxycycline Hyclate (Vibramycin) 100 mg PO BID [facility] Last Admin: 11/13/17 07:46 Dose: 100 mg Enoxaparin Sodium (Lovenox) 40 mg SC 0900 [facility] Last Admin: 11/13/17 07:46 Dose: 40 mg Furosemide (Lasix) 40 mg PO DAILY-AC [facility] Last Admin: 11/13/17 07:46 Dose: 40 mg Guaifenesin (Robitussin Sf) 200 mg PO Q4H PRN PRN Reason: Cough Guaifenesin (Mucinex) 600 mg PO Q12HR [facility] Last Admin: 11/13/17 07:47 Dose: 600 mg Hydralazine HCl (Apresoline) 10 mg SLOW IVP Q4H PRN PRN Reason: Systolic BP > 180 Loperamide HCl (Imodium) 2 mg PO PRN PRN PRN Reason: Diarrhea/Loose Stools Magnesium Hydroxide (Milk Of Magnesium) 30 ml PO DAILYPRN PRN PRN Reason: Constipation Mometasone Furoate/Formoterol Fumar (Dulera 200 Mcg/5 Mcg Inhaler) 2 puff INH BID-RT [facility] Last Admin: 11/13/17 07:17 Dose: 2 puff Ondansetron HCl (Zofran Odt) 4 mg PO Q6H PRN PRN Reason: Nausea/Vomiting Ondansetron HCl (Zofran) 4 mg IVP Q6H PRN PRN Reason: Nausea/Vomiting Pantoprazole Sodium (Protonix) 40 mg PO DAILY [facility] Last Admin: 11/13/17 07:47 Dose: 40 mg Prednisone (Prednisone) 40 mg PO QAM-WM [facility] Last Admin: 11/13/17 07:46 Dose: 40 mg Senna (Senokot) 2 tab PO HSPRN PRN PRN Reason: Constipation Sodium Chloride (Flush - Normal Saline) 10 ml IVF Q12HR [facility] Last Admin: 11/13/17 07:47 Dose: 10 ml Sodium Chloride (Flush - Normal Saline) 10 ml IVF PRN PRN PRN Reason: Saline Flush
--- NOTE | 2017-11-13 10:45 | PRG ---
DATE OF SERVICE: 11/13/2017 SUBJECTIVE: This morning, she is better, less short of breath, cough. OBJECTIVE: VITAL SIGNS: Sats are 92 on 2 liters, pulse 70, respiration 20, blood pressure 108/68. CHEST: Chest reveals decreased breath sounds without any wheezing. CARDIAC: Normal S1, S2. No gallops. ABDOMEN: Soft, no masses. LABORATORY DATA: PFT shows an FEV1 of 0.78. IMPRESSION: 1. Severe chronic obstructive pulmonary disease. 2. Former tobacco abuse. 3. Cachexia. PLAN: From a pulmonary standpoint of view, she is ready to be discharged. Follow up with the [facility] physician, she could be seen in her office in a month that she wanted to do so.
--- NOTE | 2017-11-13 16:28 | DIS ---
DATE OF ADMISSION: 11/10/2017 DATE OF DISCHARGE: 11/13/2017 DISCHARGE DISPOSITION: To home. PRIMARY DISCHARGE DIAGNOSES: Acute on chronic obstructive pulmonary disease exacerbation, acute resp iratory failure with hypoxia, acute congestive heart failure exacerbation with diastolic dysfunction, moderate protein calorie malnutrition, ongoing tobacco abuse. PROCEDURES DONE DURING HOSPITALIZATION: Echo with 2D Doppler done showed an EF of 60%-65%. There wa s diastolic dysfunction. The patient also had heavily calcified mitral annulus with moderate mitral valve stenosis as well, mitral valve area was 1.4 cm2, pulmonary artery pressures were estimated to b e 46 mmHg. Chest x-ray done showed no active intrathoracic disease. H and H 12 and 38, platelet cou nt 179. BUN 10, creatinine 0.6. BNP was 308. DISCHARGE MEDICATIONS: Doxycycline 100 mg p.o. twice daily for 4 days, Lasix 20 mg p.o. daily, DuoNe b q.6 hourly, Dulera inhaler 2 puffs twice daily, prednisone tapering dose starting at 10 mg 3 times daily for a total of 13 days. ALLERGIES: No known drug allergies. INPATIENT CONSULTS: Dr. Trevizo for Pulmonology. BRIEF COURSE DURING HOSPITALIZATION: Patient initially got admitted on the with complaints of s hortness of breath. She has a known history of COPD and was not on any home oxygen. She was in acut e respiratory failure with hypoxia and had to be placed on BiPAP in IMCU for the initial 24 hours. T he patient also had mild CHF exacerbation with diastolic dysfunction and had gentle diuresis done as well. She has been placed on tapering steroids along with empiric antibiotics. She has done remarka alma well. She is still requiring oxygen with room air saturations dropping to 85%. Home oxygen has been arranged via case management. She needs to follow up with Dr. Trevizo in 2-4 weeks. She was couns eled regarding tobacco cessation. Please see a face to face documentation on [facility] for the day of discharge.
--- NOTE | 2017-11-21 12:55 | PFT ---
PATIENT HISTORY: HEIGHT: WEIGHT: SMOKER: HOW LONG: PACKS PER DAY PRODUCTIVE COUGH: LUNG DISEASE: PHYSICIAN INTERPRETATION FINAL REPORT: Certified Surgical Tech/First Assistant comments: patient was using 3 liters nasal cannula during the test because she was desaturating on room air. FVC 1.34 (74%), FEV1 0.79 (68%), FEV1/FVC 0.65. TLC 3.77 (116%), RV, 2.41 (167%). Diffusion 0.99 (7%). There is a mild reduction to both the FEV1 and the FVC. The ratio is consistent with obstructive airflow limitation. There is no significant improvement following administration of bronchodilator. The expiratory limb of the flow volume loop is consistent with obstructive airflow limitation. Inspiratory limb is normal. Total lung capacity is normal. Residual volume is elevated. Diffusion capacity is severely impaired. IMPRESSION: Overall, these pulmonary function studies are consistent with mild obstructive lung disease with no significant improvement following bronchodilator, relative hyperexpansion, airtrapping, and severe impairment and gas exchange. Pulmonary vascular disease superimposed on otherwise mild obstructive lung disease should be considered. Clinical and radiographic correlation should be considered. Certified Surgical Tech/First Assistant: GABBY Office Machine Servicer Apprentice: GABBY BARAHONA
--- NOTE | 2017-12-07 15:13 | EKG ---
Test Reason : Blood Pressure : / mmHG Vent. Rate : 106 BPM Atrial Rate : 106 BPM P-R Int : 130 ms QRS Dur : 076 ms QT Int : 344 ms P-R-T Axes : 078 088 068 degrees QTc Int : 456 ms Sinus tachycardia with Premature atrial complexes Possible Left atrial enlargement Possible Anterior infarct , age undetermined Abnormal ECG Confirmed by MAUREEN MOODY ([id number]), content editor ALEXEI CASTILLO ([id number]) on 12/07/2017 3:12:40 PM Referred By: Confirmed By:MAUREEN MOODY
== END 2017-11-13 14:46 | disposition home or self-care (01) | DRG 291 ==
LOC: ERS 22:36 → IMCU/EMU 11-10 00:01 → T4-A 11-11 16:19
PROVIDERS: ADMIT Internal Medicine; ATTEND Internal Medicine
PROC: 5A09357 Assistance with Respiratory Ventilation, Less than 24 Consecutive Hours, Continuous Positive Airway Pressure (ICD-10-PCS; principal; 2017-11-10)
DX: I11.0 Hypertensive heart disease with heart failure (principal); J96.01 Acute respiratory failure with hypoxia; E44.0 Moderate protein-calorie malnutrition; J44.1 Chronic obstructive pulmonary disease with (acute) exacerbation; I50.33 Acute on chronic diastolic (congestive) heart failure; Z66 Do not resuscitate; F41.9 Anxiety disorder, unspecified; F32.9 Major depressive disorder, single episode, unspecified; F17.210 Nicotine dependence, cigarettes, uncomplicated; Z68.28 Body mass index [BMI] 28.0-28.9, adult; Z79.899 Other long term (current) drug therapy
CPT/HCPCS: 36415; 51702; 71045; 80048; 80053; 81003; 82553; 83605; 83690; 83735; 83880; 84484; 85025; 93005; 93306; 94060; 94640; 94660; 94727; 94729; 94760; 96365; 96375; A4216; G8978-GP-CH; G8979-GP-CH; G8980-GP-CH; J0692; J1650; J1956; J2930; J7506; J7620; J7626

== ENCOUNTER 2018-10-27 06:09 | Emergency (ER) | payer MEDICARE ==
[2018-10-27 06:50] LABS: Bilirubin Negative (Negative); Blood, Urine Large (Negative); Clarity CLOUDY (Clear); Glucose, Urine (Dipstick) Negative (Negative); Leukocyte Small (Negative); Nitrite Negative (Negative); Protein, Urine (Dipstick) 30 mg/dL (Neg-Trace); Specific Gravity, Urine 1.019 (1.002-1.036); pH, Urine 5.5 (5.0-9.0)
[2018-10-27 06:53] LABS: Bacteria/HPF None Seen HPF (None Seen); Hyaline Casts/LPF 0-3 HYALINE CAST LPF (0-3 Hyaline); Pathc Cast-AUWi Flag 0.43 (0-2.49); RBC/HPF GREATER THAN 50-TNTC HPF (0-3)
[2018-10-27 07:37] LABS: #Basophils 0.1 thou/uL (0.0-0.2); #Eosinphils 0.2 thou/uL (0.0-0.7); #Lymphocytes 2.1 thou/uL (1.20-3.40); #Monocytes 0.6 thou/uL (0.11-0.59); #Neutrophils 4.8 thou/uL (1.40-6.50); %Basophils 1.1 % (0.0-1.0); %Eosinophils 2.9 % (0.0-10.0); %Lymphocytes 26.7 % (21.0-51.0); %Monocytes 7.7 % (0.0-10.0); %Neutrophils 61.7 % (42.0-75.0); Hemoglobin 14.2 g/dL (12.0-16.0); Mean Corpuscular HGB CONC 32.2 g/dL (32.0-36.0); Mean Corpuscular Hemoglobin 28.2 pg (27.0-31.0); Mean Corpuscular Volume 87.7 fL (78.0-98.0); Mean Platelet Volume 9.9 fL (7.4-10.4); Platelet Count 195 thou/uL (130-400); RBC Distribution Width 12.7 % (11.5-14.5); Red Blood Cell (RBC) Count 5.01 mill/uL (4.20-5.40); White Blood Cell (WBC) Count 7.7 thou/uL (4.8-10.8)
[2018-10-27 08:02] LABS: ALT (SGPT) 13 U/L (8-55); AST (SGOT) 19 U/L (5-34); Alkaline Phosphatase 120 U/L (40-150); Anion Gap 16 mmol/L (10-20); BUN (Urea Nitrogen) 15 mg/dL (9.8-20.1); Bilirubin, Total 0.4 mg/dL (0.2-1.2); Calc. Creatinine Clearance 0 mL/min (70-130); Calcium 9.6 mg/dL (7.8-10.44); Carbon Dioxide 22 mmol/L (23-31); Chloride 107 mmol/L (98-107); Estimated GFR-MDRD 72; Globulin 3.3 g/dL (2.4-3.5); Glucose 91 mg/dL (83-110); Potassium 4.4 mmol/L (3.5-5.1); Protein, Total 7.3 g/dL (6.0-8.3); Sodium 141 mmol/L (136-145)
--- NOTE | 2018-10-27 09:40 | CT ---
CT ABDOMEN AND PELVIS WITHOUT IV CONTRAST: History: History of hematuria. Comparison: None. FINDINGS: There is suggestion of soft tissue density within the posterior lateral aspect of the bladder, near t he level of the trigone, measuring 2.2 cm on image 66 of series 2. The bladder is partially decompres sed. No hydronephrosis evident. No renal or ureteral calculus is evident. There is a 2 cm left adrenal adenoma. Right adrenal gland is normal appearing. There is bibasilar ate lectasis, right greater than left. There are prominent mitral annular calcifications. Unopacified liver and pancreas and spleen appear within normal limits. No lymphadenopathy is present. There is severe vascular calcification involving the abdominal aorta. No vane aneurysmal dilatation. There is scattered colonic diverticula involving the colon without evidence of vacuum diverticulitis . Small bowel is of normal caliber. There are scattered degenerative and osteoarthritic change. There is diffuse osteopenia. IMPRESSION: 1. Added soft tissue density is suspected within the right aspect of the posterior bladder, suspiciou s for possible intraluminal mass. This could be artifactual and the bladder is poorly decompressed. W ould recommend consideration for urology consultation and consideration for cystoscopy. Alternatively , a follow up IVP examination or urogram examination with or without contrast may be helpful further evaluation. 2. Bibasilar atelectasis. 3. Left adrenal adenoma. 4. Cholecystectomy. 5. Diverticulosis. 6. Severe vascular calcification of the abdominal/pelvic vasculature. Code T POS:
== END 2018-10-27 08:17 | disposition home or self-care (01) ==
LOC: ERS 06:09
DX: N32.89 Other specified disorders of bladder (principal); I50.9 Heart failure, unspecified; F17.210 Nicotine dependence, cigarettes, uncomplicated; J44.9 Chronic obstructive pulmonary disease, unspecified; Z79.899 Other long term (current) drug therapy; Z71.6 Tobacco abuse counseling
CPT/HCPCS: 36415; 74176; 80053; 81003; 81015; 85025; 87086; 99406

== ENCOUNTER 2020-01-20 09:02 | Outpatient (CLI) | payer MEDICARE ==
--- NOTE | 2020-01-20 10:52 | CT ---
CT ABDOMEN AND PELVIS WITHOUT CONTRAST: DATE: 01/20/2020. PROVIDED CLINICAL HISTORY: Neoplasm of lateral wall of bladder. FINDINGS: Comparison 10/27/2018. There are subsegmental atelectatic changes at the right lung base. There is interval development of severe right hydronephrosis and right hydroureter with parenchymal v olume loss involving the right kidney. There is interval increase in size of soft tissue mass at the posterolateral aspect of the urinary bladder right of midline, inseparable from the vaginal cuff and right obturator internus muscle as well as a portion of the small bowel within the pelvis. This is inseparable from the distal right ureter. This now measures at least 4.3 x 3.6 cm. The solid abdominal organs are suboptimally evaluated in the absence of IV contrast material but demo nstrate an otherwise unremarkable unenhanced CT appearance. There is no bowel dilatation, inflammato ry fat stranding, free fluid, or free air apparent. Sigmoid colonic diverticulosis is redemonstrated . Changes of prior cholecystectomy are again seen. Vascular calcification involving the abdominal a bettina and its branches redemonstrated. The osseous structures demonstrate no concerning lytic or blastic lesions. IMPRESSION: Interval enlargement of urinary bladder mass with development of right hydronephrosis and right hydro ureter. The presence of renal cortical volume loss suggests a subacute process. POS: PIPO
== END 2020-01-20 09:03 | disposition home or self-care (01) ==
LOC: BICCT 09:02
PROVIDERS: ATTEND Urology
DX: C67.2 Malignant neoplasm of lateral wall of bladder (principal); N13.4 Hydroureter; N13.30 Unspecified hydronephrosis; N32.9 Bladder disorder, unspecified; N32.89 Other specified disorders of bladder
CPT/HCPCS: 74176